=== PATIENT | male | born 1985 | race Caucasian/White ===

== ENCOUNTER 2019-06-18 20:27 | Inpatient (IN) | payer OTHER ==
[~2019-06-18] VITALS: Ht 182.9 cm; Wt 107.4 kg
[~2019-06-18 20:27] MED LIST: INSULINS; LOVA20TA2 PO; [UNRECOGNIZED DRUG - OTHER]
[2019-06-18] MEDS ORDERED: MIDAZOLAM 1 MG/ML, 2ML ONE (20:44)
[2019-06-18] MEDS ORDERED: PROPOFOL 100 ML IV ONE ×2 (20:50→23:33)
[2019-06-18] MEDS ORDERED: REGULAR INSULIN 62.5 UNITS in SODIUM CHLORIDE 0.9% 249.375 ML IV PRN ×2 (21:00→23:43)
--- NOTE | 2019-06-18 21:00 | NUR ---
PT ARRIVED TO ED FROM [facility] INTUBATED WITH 8.0 TUBE 24CM AT LIP. PT PRESENTS COLD TO TOUCH WITH CORE TEMP AT 91.7. WARM FLUIDS STARTED AND BEAR HUGGER BLANKET PLACED ON PT.
[2019-06-18 21:20] LABS: MEAN CORPUSCULAR HEMOGLOBIN 29.2 pg (27.5-34.5); MEAN CORPUSCULAR HGB CONC 31.2 g/dL (33.2-36.2); MEAN CORPUSCULAR VOLUME 93.6 fL (81-97); MEAN PLATELET VOLUME 8.8 fL (7.4-10.4); PLATELET COUNT 246 x10^3/uL (130-400); RED BLOOD COUNT 5.88 x10^6/uL (4.38-5.82); RED CELL DISTRIBUTION WIDTH 13.4 % (9.4-14.8)
[2019-06-18 21:27] LABS: ALANINE AMINOTRANSFERASE 22 U/L (12-78); ALBUMIN 3.1 g/dL (3.4-5.0); ANION GAP 22 mmol/L (5-15); CALCIUM 6.9 mg/dL (8.5-10.1); CHLORIDE 107 mmol/L (98-107); CREATININE 1.77 mg/dL (0.7-1.3)
[2019-06-18] MEDS ORDERED: PLEASE ENTER HEIGHT AND WEIGHT MC SCH (21:30)
[2019-06-18 21:32] LABS: ALKALINE PHOSPHATASE 97 U/L (45-117); BILIRUBIN,TOTAL 0.7 mg/dL (0.2-1.0); TOTAL PROTEIN 6.2 g/dL (6.4-8.2); TROPONIN I 0.101 ng/mL (0.000-0.045)
[2019-06-18 21:42] LABS: MD YES
[2019-06-18 21:44] LABS: BAND#(MANUAL) 5.42 x10^3/uL; BANDS%(MANUAL) 12 % (0-7); BASOS#(MANUAL) 0.45 x10^3/uL (0-0.1); BASOS% (MANUAL) 1 % (0-1); LYMPH#(MANUAL) 1.81 x10^3/uL (1-3.4); LYMPHS% (MANUAL) 4 % (22-44); METAMYELOCYTES# (MANUAL) 0.45 x10^3/uL (0-0); METAMYELOCYTES% (MANUAL) 1 % (0-1); MONOS#(MANUAL) 4.52 x10^3/uL (0.3-2.7); MONOS% (MANUAL) 10 % (2-9); SEG#(MANUAL) 32.54 x10^3/uL (1.8-6.8); SEGS% (MANUAL) 72 % (42-75)
[2019-06-18 21:45] LABS: <PLATELET ESTIMATE> ADEQUATE; <PLT MORPHOLOGY> NORMAL PLT MORPH; <RBC MORPHOLOGY> NORMAL
[2019-06-18] MEDS ORDERED: PIPERACILLIN/TAZO/PMX 3.375GM 50 ML IVPB ONE (22:00)
[2019-06-18] MEDS ORDERED: VANCOMYCIN PER PHARMACY MC ONE (22:00)
[2019-06-18] MEDS ORDERED: PHARMACOKINETIC CONSULTATION MC ONE (22:30)
[2019-06-18] MEDS ORDERED: VANCOMYCIN 1,800 MG in SODIUM CHLORIDE 0.9% 250 ML IV ONE (22:30)
[2019-06-18] MEDS ORDERED: PIPERACILLIN/TAZO/PMX 3.375GM 50 ML ONE (22:36)
--- NOTE | 2019-06-18 22:57 | NUR ---
PT FAMILY AT BEDSIDE AT THIS TIME. VSS. ANGEL SUREKHA AWARE OF CRITICAL LABS.
[2019-06-18] MEDS ORDERED: PHARMACY MAY ADJ FOR RENAL FX MC SCH (23:30)
[2019-06-18] MEDS ORDERED: SENNA 176 MG/5 ML ORAL SOL NG PRN (23:30)
[2019-06-18] MEDS ORDERED: DEXTROSE 4 GM TAB.CHEW PO PRN (23:30)
[2019-06-18] MEDS ORDERED: BISACODYL 10 MG SUPP PR PRN (23:30)
[2019-06-18] MEDS ORDERED: LACTULOSE 20 GM/30 ML UDC NG PRN (23:30)
[2019-06-18] MEDS ORDERED: LIDOCAINE-MPF 1%, 2ML ENDO PRN (23:30)
[2019-06-18] MEDS ORDERED: SENNA/DOCUSATE TABLET NG PRN (23:30)
[2019-06-18] MEDS ORDERED: GLUCAGON 1 MG IM PRN (23:30)
[2019-06-18] MEDS ORDERED: DEXTROSE 50%, 50ML SYRINGE IVPush PRN (23:30)
[2019-06-18] MEDS ORDERED: D5%-0.45% NACL 1,000 ML IV PRN (23:43)
[2019-06-18] MEDS: PROPOFOL 100 ML IV PRN (23:58)
[2019-06-19] MEDS ORDERED: PHARMACY MAY ADJ FOR RENAL FX MC PRN
[2019-06-19] MEDS ORDERED: CALCIUM GLUCONATE 9.2 MEQ in SODIUM CHLORIDE 0.9% 100 ML IV ONE
[2019-06-19] MEDS ORDERED: PIPERACILLIN/TAZO/PMX 3.375GM 50 ML IV SCH
[2019-06-19] MEDS ORDERED: SODIUM CHLORIDE 0.9% 1,000 ML IV SCH
--- NOTE | 2019-06-19 00:20 | NUR ---
ORDERS OBTAINED FROM DR. ALMODOVAR FOR NEW SEDATION MEDICATION. TELEPHONE ORDERS ENTERED FOR VERSED FOR BREAKTHROUGH AGGITATION AND PRECEDEX FOR SEDATION.
[2019-06-19 00:25] LABS: ANION GAP 19 mmol/L (5-15); CALCIUM 7.3 mg/dL (8.5-10.1); CHLORIDE 108 mmol/L (98-107); CREATININE 2.33 mg/dL (0.7-1.3)
[2019-06-19] MEDS ORDERED: DEXMEDETOMIDINE 200 MCG in SODIUM CHLORIDE 0.9% 48 ML IV PRN (00:30)
[2019-06-19 00:40] LABS: CREATINE KINASE, TOTAL 1848 U/L (39-308)
[2019-06-19 00:41] LABS: TROPONIN I 0.194 ng/mL (0.000-0.045)
[2019-06-19] MEDS ORDERED: MIDAZOLAM 1 MG/ML, 2ML ONE ×3 (00:42→06:58)
[2019-06-19] MEDS ORDERED: SODIUM BICARB 8.4%, 50ML SYRINGE IVPB PRN (01:00)
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
[2019-06-19] MEDS ORDERED: VECURONIUM 10 MG ONE (01:52)
[2019-06-19] MEDS ORDERED: FENTANYL PF 100 MCG/2ML ONE (01:54)
[2019-06-19] MEDS ORDERED: VECURONIUM 10 MG IVPush ONE (02:30)
[2019-06-19] MEDS ORDERED: FENTANYL PF 100 MCG/2ML IVPush PRN (02:30)
--- NOTE | 2019-06-19 03:11 | NUR ---
Additional Precedex and Insulin req from pharm
[2019-06-19] MEDS ORDERED: LEVOFLOXACIN/PMX 750MG/150ML 150 ML ONE ×2 (03:54→07:43)
[2019-06-19] MEDS ORDERED: LEVOFLOXACIN/PMX 750MG/150ML 150 ML IV SCH (04:00)
[2019-06-19] MEDS ORDERED: VANCOMYCIN PER PHARMACY MC PRN (04:00)
--- NOTE | 2019-06-19 04:00 | NUR ---
LEVAQUIN STARTED AT THIS TIME. UNABLE TO DOCUMENT ON EMAR.
--- NOTE | 2019-06-19 04:22 | NUR ---
PT CONT HOTN BP 77/36. [facility] DR. REED NOTIFIED. ASKED [facility]EL IRBY AND ISAIAH TO PUT IN CENTRAL LINE FOR LEVOPHED DRIP. PT AWARE OF CENTRAL LINE PLACEMENT AND WAITING IN LOBBY DURNING PROCEDURE.
[2019-06-19] MEDS ORDERED: NOREPINEPHRINE 4 MG in SODIUM CHLORIDE 0.9% 246 ML IV PRN (05:00)
--- NOTE | 2019-06-19 05:15 | NUR ---
CRITICAL LABS RECEIVED AND REPORTED TO KONG RUANO RN.
[2019-06-19] MEDS ORDERED: SODIUM BICARBONATE 1 MEQ/ML, 50ML VIAL ONE (05:20)
--- NOTE | 2019-06-19 05:20 | NUR ---
LEVOPHED STARTED THROUGH CENTRAL LINE. PT TOLERATING WELL.
[2019-06-19 05:21] LABS: MEAN CORPUSCULAR HEMOGLOBIN 28.9 pg (27.5-34.5); MEAN CORPUSCULAR VOLUME 90.3 fL (81-97); MEAN PLATELET VOLUME 8.4 fL (7.4-10.4); PLATELET COUNT 163 x10^3/uL (130-400); RED BLOOD COUNT 5.81 x10^6/uL (4.38-5.82); RED CELL DISTRIBUTION WIDTH 13.6 % (9.4-14.8)
[2019-06-19 05:23] LABS: ALANINE AMINOTRANSFERASE 20 U/L (12-78); ALBUMIN 2.9 g/dL (3.4-5.0); ANION GAP 13 mmol/L (5-15); CHLORIDE 117 mmol/L (98-107); CREATININE 2.61 mg/dL (0.7-1.3)
[2019-06-19 05:27] LABS: ALKALINE PHOSPHATASE 58 U/L (45-117); BILIRUBIN,TOTAL 0.6 mg/dL (0.2-1.0); TOTAL PROTEIN 5.9 g/dL (6.4-8.2)
[2019-06-19 05:37] LABS: CREATINE KINASE, TOTAL 1591 U/L (39-308)
[2019-06-19 05:42] LABS: MD YES
[2019-06-19 05:47] LABS: TROPONIN I 0.222 ng/mL (0.000-0.045)
[2019-06-19 06:01] LABS: <PLATELET ESTIMATE> ADEQUATE; <PLT MORPHOLOGY> NORMAL PLT MORPH; <RBC MORPHOLOGY> NORMAL; BAND#(MANUAL) 3.54 x10^3/uL; BANDS%(MANUAL) 12 % (0-7); LYMPH#(MANUAL) 3.84 x10^3/uL (1-3.4); LYMPHS% (MANUAL) 13 % (22-44); MONOS% (MANUAL) 1 % (2-9); SEG#(MANUAL) 21.83 x10^3/uL (1.8-6.8); SEGS% (MANUAL) 74 % (42-75)
[2019-06-19] MEDS: PROPOFOL 100 ML IV PRN ×3 (06:46→10:34)
[2019-06-19] MEDS: MIDAZOLAM 1 MG/ML, 2ML IVPush PRN ×2 (07:01→08:55)
[2019-06-19] MEDS ORDERED: HEPARIN 5,000 UNITS/ML, 1ML ONE (07:43)
[2019-06-19] MEDS ORDERED: PROPOFOL 100 ML IV ONE (07:43)
[2019-06-19] MEDS: HEPARIN 5,000 UNITS/ML, 1ML SQ SCH ×3 (07:47→16:07)
[2019-06-19] MEDS: LEVOFLOXACIN/PMX 750MG/150ML 150 ML IV SCH (08:18)
[2019-06-19] MEDS: SODIUM CHLORIDE FLUSH 10ML SYR IVF SCH ×2 (08:20→19:51)
[2019-06-19] MEDS: FAMOTIDINE 20 MG/2 ML IVPush SCH (08:20)
[2019-06-19 08:22] LABS: MICROSCOPIC INDICATED
[2019-06-19 08:38] LABS: CULTURE INDICATED? YES
[2019-06-19] MEDS ORDERED: MIDAZOLAM 1 MG/ML, 2ML IV PRN (09:30)
[2019-06-19] MEDS ORDERED: ZIPRASIDONE 20 MG INJ IM PRN (09:30)
[2019-06-19] MEDS ORDERED: DEXMEDETOMIDINE 1,000 MCG in SODIUM CHLORIDE 0.9% 240 ML IV PRN (10:30)
[2019-06-19] MEDS: MIDAZOLAM 1 MG/ML, 2ML IV PRN (11:00)
[2019-06-19] MEDS ORDERED: PHARMACOKINETIC MONITORING MC PRN (11:00)
[2019-06-19] MEDS: FENTANYL PF 100 MCG/2ML IVPush PRN ×2 (11:56→13:10)
[2019-06-19 12:20] LABS: ANION GAP 17 mmol/L (5-15); CALCIUM 7.7 mg/dL (8.5-10.1); CHLORIDE 113 mmol/L (98-107); CREATININE 2.46 mg/dL (0.7-1.3)
[2019-06-19] MEDS: D5%-0.45% NACL 1,000 ML IV PRN (12:55)
[2019-06-19] MEDS: REGULAR INSULIN 62.5 UNITS in SODIUM CHLORIDE 0.9% 249.375 ML IV PRN (15:52)
[2019-06-19] MEDS: OXYcodone/APAP 5/325MG TABLET PO PRN (18:26)
[2019-06-19 18:30] LABS: ANION GAP 12 mmol/L (5-15); CALCIUM 8.3 mg/dL (8.5-10.1); CHLORIDE 118 mmol/L (98-107); CREATININE 2.25 mg/dL (0.7-1.3)
[2019-06-19 18:31] LABS: VANCOMYCIN,RANDOM 9.4 mcg/mL
[2019-06-19] MEDS ORDERED: VANCOMYCIN 1,800 MG in SODIUM CHLORIDE 0.9% 250 ML IV ONE (20:00)
[2019-06-19 23:35] LABS: ANION GAP 11 mmol/L (5-15); CALCIUM 8.2 mg/dL (8.5-10.1); CHLORIDE 116 mmol/L (98-107); CREATININE 1.95 mg/dL (0.7-1.3)
[2019-06-20] MEDS: HEPARIN 5,000 UNITS/ML, 1ML SQ SCH ×5 (00:01→16:15)
[2019-06-20] MEDS ORDERED: ONDANSETRON 2MG/ML, 2ML ONE (00:22)
[2019-06-20] MEDS: ONDANSETRON 2MG/ML, 2ML IVPush PRN ×2 (00:24→17:29)
[2019-06-20] MEDS: FENTANYL PF 100 MCG/2ML IVPush PRN ×2 (00:25→07:13)
[2019-06-20] MEDS: MIDAZOLAM 1 MG/ML, 2ML IV PRN (00:25)
[2019-06-20] MEDS: REGULAR INSULIN 62.5 UNITS in SODIUM CHLORIDE 0.9% 249.375 ML IV PRN ×2 (01:01→14:39)
[2019-06-20 03:18] LABS: MEAN CORPUSCULAR HEMOGLOBIN 29.1 pg (27.5-34.5); MEAN CORPUSCULAR HGB CONC 33.1 g/dL (33.2-36.2); MEAN CORPUSCULAR VOLUME 87.7 fL (81-97); MEAN PLATELET VOLUME 8.5 fL (7.4-10.4); PLATELET COUNT 108 x10^3/uL (130-400); RED BLOOD COUNT 5.22 x10^6/uL (4.38-5.82); RED CELL DISTRIBUTION WIDTH 13.5 % (9.4-14.8)
[2019-06-20 03:30] LABS: ANION GAP 10 mmol/L (5-15); CALCIUM 7.9 mg/dL (8.5-10.1); CHLORIDE 116 mmol/L (98-107)
[2019-06-20 04:04] VITALS: BP 112/70
[2019-06-20 04:04] LABS: MD YES
[2019-06-20 04:06] LABS: <PLATELET ESTIMATE> DECREASED; <PLT MORPHOLOGY> NORMAL PLT MORPH; <RBC MORPHOLOGY> NORMAL; BAND#(MANUAL) 1.16 x10^3/uL; BANDS%(MANUAL) 7 % (0-7); LYMPH#(MANUAL) 1.49 x10^3/uL (1-3.4); LYMPHS% (MANUAL) 9 % (22-44); MONOS#(MANUAL) 0.66 x10^3/uL (0.3-2.7); MONOS% (MANUAL) 4 % (2-9); SEGS% (MANUAL) 80 % (42-75)
[2019-06-20 07:44] LABS: ANION GAP 10 mmol/L (5-15); CALCIUM 8.2 mg/dL (8.5-10.1); CHLORIDE 113 mmol/L (98-107)
[2019-06-20] MEDS ORDERED: FENTANYL PF 100 MCG/2ML IVPush PRN (08:00)
[2019-06-20] MEDS: SODIUM CHLORIDE FLUSH 10ML SYR IVF SCH ×2 (08:37→20:50)
[2019-06-20] MEDS: FAMOTIDINE 20 MG/2 ML IVPush SCH (08:37)
[2019-06-20] MEDS: LEVOFLOXACIN/PMX 750MG/150ML 150 ML IV SCH (08:37)
[2019-06-20] MEDS ORDERED: POTASSIUM CHLORIDE 20 MEQ TAB.ER.PRT ONE (10:01)
[2019-06-20 11:34] LABS: ANION GAP 14 mmol/L (5-15); CALCIUM 7.5 mg/dL (8.5-10.1); CHLORIDE 108 mmol/L (98-107); CREATININE 1.79 mg/dL (0.7-1.3)
[2019-06-20] MEDS: OXYcodone/APAP 5/325MG TABLET PO PRN ×2 (13:58→17:29)
[2019-06-20] MEDS: D5%-0.45% NACL 1,000 ML IV PRN ×2 (14:38→20:50)
[2019-06-20 15:32] LABS: ANION GAP 8 mmol/L (5-15); CHLORIDE 111 mmol/L (98-107)
[2019-06-20] MEDS ORDERED: POTASSIUM CHLORIDE 20 MEQ TAB.ER.PRT PO SCH (17:00)
[2019-06-20 19:25] LABS: ANION GAP 12 mmol/L (5-15); CALCIUM 7.8 mg/dL (8.5-10.1); CHLORIDE 111 mmol/L (98-107); CREATININE 1.49 mg/dL (0.7-1.3)
[2019-06-20] MEDS ORDERED: LORazepam 2 MG/ML, 1ML ONE (19:57)
[2019-06-20] MEDS: LORazepam 2 MG/ML, 1ML IVPush PRN (20:00)
[2019-06-20 23:27] LABS: ANION GAP 7 mmol/L (5-15); CALCIUM 7.9 mg/dL (8.5-10.1); CHLORIDE 113 mmol/L (98-107); CREATININE 1.48 mg/dL (0.7-1.3)
[2019-06-21] MEDS: ONDANSETRON 2MG/ML, 2ML IVPush PRN ×3 (00:29→13:06)
[2019-06-21] MEDS: HEPARIN 5,000 UNITS/ML, 1ML SQ SCH ×3 (01:13→16:12)
[2019-06-21] MEDS: REGULAR INSULIN 62.5 UNITS in SODIUM CHLORIDE 0.9% 249.375 ML IV PRN (03:04)
[2019-06-21 03:17] LABS: ANION GAP 6 mmol/L (5-15); CALCIUM 8.1 mg/dL (8.5-10.1); CHLORIDE 114 mmol/L (98-107); CREATININE 1.31 mg/dL (0.7-1.3)
[2019-06-21 04:44] VITALS: BP 134/89
[2019-06-21] MEDS: D5%-0.45% NACL 1,000 ML IV PRN (04:48)
[2019-06-21] MEDS ORDERED: INSULIN LISPRO 100 UNITS/ML, PEN SQ-INSULIN SCH (07:00)
[2019-06-21] MEDS: INSULIN LISPRO 100 UNITS/ML, PEN SQ-INSULIN SCH ×4 (07:00→20:45)
[2019-06-21 08:10] VITALS: BP 134/80
[2019-06-21] MEDS ORDERED: INSULIN GLARGINE 100 UNITS/ML, PEN SQ-INSULIN SCH (09:00)
[2019-06-21] MEDS: POTASSIUM CHLORIDE 20 MEQ TAB.ER.PRT PO SCH ×2 (09:29→16:13)
[2019-06-21] MEDS: SODIUM CHLORIDE FLUSH 10ML SYR IVF SCH ×2 (09:29→20:14)
[2019-06-21] MEDS: LEVOFLOXACIN/PMX 750MG/150ML 150 ML IV SCH (09:30)
[2019-06-21] MEDS: INSULIN GLARGINE 100 UNITS/ML, PEN SQ-INSULIN SCH ×2 (11:52→20:45)
[2019-06-21 12:40] VITALS: BP 134/85
[2019-06-21 20:00] VITALS: BP 113/72
[2019-06-21] MEDS ORDERED: IBUPROFEN 600 MG TABLET PO PRN (21:30)
[2019-06-21] MEDS: CALCIUM CARBONATE 500 MG TAB.CHEW PO PRN (21:55)
[2019-06-22] MEDS: HEPARIN 5,000 UNITS/ML, 1ML SQ SCH ×3 (00:41→16:42)
[2019-06-22 02:47] VITALS: BP 112/73
[2019-06-22] MEDS: ONDANSETRON 2MG/ML, 2ML IVPush PRN (03:24)
[2019-06-22] MEDS: CALCIUM CARBONATE 500 MG TAB.CHEW PO PRN ×2 (03:24→17:54)
[2019-06-22 05:07] LABS: ANION GAP 6 mmol/L (5-15); CALCIUM 8.7 mg/dL (8.5-10.1); CHLORIDE 110 mmol/L (98-107)
[2019-06-22 05:08] LABS: CREATININE 1.02 mg/dL (0.7-1.3)
[2019-06-22] MEDS: INSULIN LISPRO 100 UNITS/ML, PEN SQ-INSULIN SCH ×4 (07:00→20:13)
[2019-06-22 07:15] VITALS: BP 135/76
[2019-06-22] MEDS: LEVOFLOXACIN/PMX 750MG/150ML 150 ML IV SCH (07:57)
[2019-06-22] MEDS: SODIUM CHLORIDE FLUSH 10ML SYR IVF SCH ×2 (07:57→20:14)
[2019-06-22] MEDS: INSULIN GLARGINE 100 UNITS/ML, PEN SQ-INSULIN SCH ×2 (09:41→20:14)
[2019-06-22] MEDS ORDERED: ZOLPIDEM 10MG TABLET PO PRN (11:30)
[2019-06-22 12:35] VITALS: BP 141/87
[2019-06-22 19:24] VITALS: BP 125/83
[2019-06-23] MEDS: HEPARIN 5,000 UNITS/ML, 1ML SQ SCH (00:25)
[2019-06-23 03:00] VITALS: BP 128/84
[2019-06-23 06:10] LABS: ANION GAP 7 mmol/L (5-15); CALCIUM 8.5 mg/dL (8.5-10.1); CHLORIDE 106 mmol/L (98-107); CREATININE 1.13 mg/dL (0.7-1.3)
[2019-06-23 06:14] LABS: BASOPHILS # (AUTO) 0.01 x10^3/uL (0-0.1); BASOPHILS % (AUTO) 0 % (0-1); EOSINOPHILS # (AUTO) 0.08 x10^3/uL (0-0.4); EOSINOPHILS % (AUTO) 1 % (1-7); LYMPHOCYTES # (AUTO) 1.65 x10^3/uL (1-3.4); LYMPHOCYTES % (AUTO) 24 % (22-44); MD NO; MEAN CORPUSCULAR HEMOGLOBIN 29.3 pg (27.5-34.5); MEAN CORPUSCULAR HGB CONC 33.2 g/dL (33.2-36.2); MEAN CORPUSCULAR VOLUME 88.3 fL (81-97); MEAN PLATELET VOLUME 8.1 fL (7.4-10.4); MONOCYTES # (AUTO) 0.77 x10^3/uL (0.2-0.8); MONOCYTES % (AUTO) 11 % (2-9); NEUTROPHILS # (AUTO) 4.42 x10^3/uL (1.8-6.8); NEUTROPHILS % (AUTO) 64 % (42-75); PLATELET COUNT 125 x10^3/uL (130-400); RED BLOOD COUNT 5.46 x10^6/uL (4.38-5.82); RED CELL DISTRIBUTION WIDTH 13.9 % (9.4-14.8)
[2019-06-23] MEDS: INSULIN LISPRO 100 UNITS/ML, PEN SQ-INSULIN SCH ×2 (07:00→11:34)
[2019-06-23 07:23] VITALS: BP 137/90
[2019-06-23] MEDS ORDERED: LEVOFLOXACIN 750 MG TABLET PO SCH (09:00)
[2019-06-23] MEDS: SODIUM CHLORIDE FLUSH 10ML SYR IVF SCH (09:00)
[2019-06-23] MEDS: INSULIN GLARGINE 100 UNITS/ML, PEN SQ-INSULIN SCH (11:34)
[2019-06-23 13:05] LABS: HIT RESULT NEGATIVE (NEGATIVE)
[2019-06-23 13:34] VITALS: BP 129/80
[2019-06-23] MEDS ORDERED: LEVO750T26 PO (14:28)
[2019-06-23] MEDS ORDERED: ONDA4TAB7 PO (14:28)
[2019-06-23] MEDS ORDERED: FLU VACC QS2019-20 36MOS UP/PF 0.5 ML IM-VACC ONE (15:30)
== END 2019-06-23 15:45 | disposition home or self-care (01) | DRG 871 ==
LOC: ED 20:36 → EDIP 22:57 → CCU 06-19 08:05 → 3N 06-21 07:20
PROVIDERS: ADMIT Family Medicine; ATTEND Hospitalist
PROC: 02HV33Z Insertion of Infusion Device into Superior Vena Cava, Percutaneous Approach (ICD-10-PCS; principal; 2019-06-18)
PROC: B548ZZA Ultrasonography of Superior Vena Cava, Guidance (ICD-10-PCS; 2019-06-18)
PROC: 5A1935Z Respiratory Ventilation, Less than 24 Consecutive Hours (ICD-10-PCS; 2019-06-18)
PROC: 0BH17EZ Insertion of Endotracheal Airway into Trachea, Via Natural or Artificial Opening (ICD-10-PCS; 2019-06-18)
PROC: 0T9B70Z Drainage of Bladder with Drainage Device, Via Natural or Artificial Opening (ICD-10-PCS; 2019-06-19)
DX: A41.9 Sepsis, unspecified organism (principal); E10.11 Type 1 diabetes mellitus with ketoacidosis with coma; G93.41 Metabolic encephalopathy; J15.4 Pneumonia due to other streptococci; J96.00 Acute respiratory failure, unspecified whether with hypoxia or hypercapnia; N17.0 Acute kidney failure with tubular necrosis; R57.1 Hypovolemic shock; M62.82 Rhabdomyolysis; N39.0 Urinary tract infection, site not specified; Z99.11 Dependence on respirator [ventilator] status; D69.59 Other secondary thrombocytopenia; E10.40 Type 1 diabetes mellitus with diabetic neuropathy, unspecified; E87.5 Hyperkalemia; F32.9 Major depressive disorder, single episode, unspecified; G47.00 Insomnia, unspecified; G47.33 Obstructive sleep apnea (adult) (pediatric); K80.20 Calculus of gallbladder without cholecystitis without obstruction; Z91.14 Patient's other noncompliance with medication regimen; D18.03 Hemangioma of intra-abdominal structures
CPT/HCPCS: 31500; 36415; 36556; 36600; 84145; 93017; 96374; 96375; 99291; J3490; 71045; 76700; 78452; 80048; 80053; 80202; 81001; 82330; 82550; 82803; 82962; 83036; 83605; 83690; 83735; 84100; 84478; 84484; 85025; 86022; 87040; 87070; 87081; 87086; 87147; 87205; 90686; 93005; 93308; 93321; 93325; 94002; G0378; J0610; J1644; J1815; J1956; J2250; J2405; J2543; J2704; J3010; J3370; J3486; A9502; C9898; J2060; J7030; J7050